=== PATIENT | male | born 1960 | race Caucasian/White ===

== ENCOUNTER 2016-09-09 09:58 | Day surgery (SDC) | payer MEDICARE, MEDICAID ==
[~2016-09-09 09:58] MED LIST: PROPOFOL INJ 200 MG/20 ML VIAL IV ONE
[2016-09-09 12:20] VITALS: BP 148/72
--- NOTE | 2016-09-09 13:15 | Operative Report ---
Operative Report DATE OF SURGERY: 09/09/16 Operative Report: The risks, benefits and alternatives of the procedure including risks of bleeding, perforation requiring surgery are explained to the patient detail and informed consent is obtained. Patient is taken back to the endoscopy suite. Patient is placed in a left lateral decubital position. Timeout is called. A rectal examination was done which did not reveal any masses, tears or fissures. An Olympus videoscope was inserted into the patient's rectum. The scope was then gradually advanced all the way to the cecum. The cecum was identified by the usual anatomical landmarks including the ileocecal valve as well as the appendiceal office. Photodocumentation is obtained. Prep is good. The scope was then sequentially pulled back via the various segments of the colon including the ascending colon, hepatic flexure, transverse colon, splenic flexure, descending colon and finally into the rectosigmoid colon. Retroflexion maneuvers performed. PREOPERATIVE DIAGNOSIS: Persistent diarrhea, change of bowel habits POSTOPERATIVE DIAGNOSIS: Mild right-sided inflammation status post biopsy rule out microscopic, lymphocytic, collagenous colitis. OPERATION: Colonoscopy with biopsy SURGEON: CHRISTOPHER BURGESS ANESTHESIA: LMAC TISSUE REMOVED OR ALTERED: Right-sided colon specimens obtained. COMPLICATIONS: None. ESTIMATED BLOOD LOSS: none. INTRAOPERATIVE FINDINGS: No evidence of AVMs, diverticulosis. PROCEDURE: Patient tolerated the procedure well. No immediate postprocedure complications are noted. Patient is discharged in good condition. Discharge date 09/09/2016. Discharge diet: Regular. Discharge activity: Regular. Patient does have a 2-3 week follow-up to discuss findings. Patient is instructed to call the office or proceed to the emergency room if there are any postprocedure issues. We'll await on biopsies. Call patient once results of the biopsies are available.
== END 2016-09-09 12:15 | disposition home or self-care (01) ==
LOC: END 09:58
PROVIDERS: ATTEND Internal Medicine Gastroenterology
PROC: 0DBF8ZX Excision of Right Large Intestine, Via Natural or Artificial Opening Endoscopic, Diagnostic (ICD-10-PCS; principal; 2016-09-09 12:30)
DX: K52.9 Noninfective gastroenteritis and colitis, unspecified (principal); K21.0 Gastro-esophageal reflux disease with esophagitis; E11.9 Type 2 diabetes mellitus without complications; E78.5 Hyperlipidemia, unspecified; I10 Essential (primary) hypertension; I50.9 Heart failure, unspecified; E03.9 Hypothyroidism, unspecified; E66.9 Obesity, unspecified; Z68.30 Body mass index [BMI] 30.0-30.9, adult; Z79.4 Long term (current) use of insulin; Z79.51 Long term (current) use of inhaled steroids
CPT/HCPCS: 45380; 82962; 88305 ×2; J2704; 810